=== PATIENT | female | born 1975 | race Caucasian/White ===

== ENCOUNTER 2018-07-11 12:48 | Emergency (ER) | payer OTHER ==
[2018-07-11 12:59] VITALS: BP 147/96; PULSE 81; RESP 18; TEMP 97
--- NOTE | 2018-07-11 13:38 | ED ---
General Adult HPI - General Chief complaint: Recheck/Abnormal Lab/Rx Stated complaint: MED REFILLS Source: patient, RN notes reviewed, old records reviewed Mode of arrival: ambulatory Limitations: no limitations - History of Present Illness Initial comments: 42-year-old female patient presents to ED for medication refill. Patient states that she recently moved back here from [place], states her previous provider from [place] did not order refills on jenaro medications of Gabapentin and Welbutrin XL. Patient is scheduled to see Dr. Merrill on 07/25. Patient states that she has been out of her medication for approximately 5 days. Patient takes gabapentin for hx of sciatica and welbutrin for depression. Patient denies any other complaints. Patient denies chest pain, shortness of breath, difficult to breathing, headache, changes in vision, cough/congestion's , abdominal pain, fever/chills, nausea vomiting diarrhea, dysurua, MSK injury/ complaint. Systemic: Pt denies fatigue, myalgia, fever/chills, rash. Pt denies weakness, night sweats, weight loss. Neuro: Pt denies headache, visual disturbances, syncope or pre-syncope. HEENT: Pt denies ocular discharge or irritation, otalgia, rhinorrhea, pharyngitis or notable lymphadenopathy. Cardiopulmonary: Pt denies chest pain, SOB, heart palpitations, dyspnea on exertion. Abdominal/GI: Pt denies abdominal pain, n/v/d. : Pt denies dysuria, burning w/ urination, frequency/urgency. Denies new onset urinary or bowel incontinence. MSK: Pt denies myalgia, loss of strength or function in extremities. - Related Data Home Medications Medication Instructions Recorded Confirmed Ibuprofen [Motrin] 800 mg PO Q8HR PRN 05/22/16 08/04/16 Atomoxetine HCl [Strattera] 100 mg PO DAILY 07/11/18 07/11/18 Gabapentin [Neurontin] 1,200 mg PO TID 07/11/18 07/11/18 hydrOXYzine PAMOATE [Vistaril] 100 mg PO TID 07/11/18 07/11/18 Previous Rx's Medication Instructions Recorded Gabapentin 800 mg PO TID 14 Days #42 tab 07/11/18 buPROPion XL [Wellbutrin Xl] 300 mg PO DAILY #14 tab.er.24h 07/11/18 Allergies Allergy/AdvReac Type Severity Reaction Status Date / Time No Known Allergies Allergy Verified 07/11/18 12:55 Review of Systems ROS Statement: Those systems with pertinent positive or pertinent negative responses have been documented in the HPI. ROS Other: All systems not noted in ROS Statement are negative. Past Medical History Past Medical History: GERD/Reflux, Seizure Disorder Additional Past Medical History / Comment(s): migraine, sciatica, abdominal abscess 2008 History of Any Multi-Drug Resistant Organisms: C-DIFF Date of last positivie culture/infection: 2013 Past Surgical History: Section, Cholecystectomy, Tubal Ligation Additional Past Surgical History / Comment(s): abdominal abscess, neck growth removed Past Psychological History: Anxiety Smoking Status: Current every day smoker Past Alcohol Use History: None Reported, Occasional Past Drug Use History: None Reported General Exam - General Exam Comments Initial Comments: Constitutional: NAD, AOX3, Pt has pleasant affect. HEENT: NC/AT, trachea midline, neck supple, no lymphadenopathy. Posterior pharynx non erythematous, without exudates. External ears appear normal, without discharge. Mucous membranes moist. Eyes PERRLA, EOM intact. There is no scleral icterus. No pallor noted. Cardiopulmonary: RRR, no murmurs, rubs or gallops, no JVD noted. Lungs CTAB in anterior and posterior villa. No peripheral edema. Abdominal exam: Abdomen soft and non-distended. Abdomen non-tender to palpation in all 4 quadrants. Bowel sounds active in LLQ. No hepatosplenomegaly. Neuro: CN II-XII grossly intact. Limitations: no limitations Course Vital Signs 07/11/18 12:55 Temperature 97 F L Pulse Rate 81 Respiratory 18 Rate Blood Pressure 147/96 O2 Sat by Pulse 100 Oximetry Medical Decision Making - Medical Decision Making 42-year-old female patient presents to ED for medication refill. Patient has appointment to see new primary care provider on 07/25. Medications patient is out of her gabapentin and Wellbutrin. Patient takes gabapentin for sciatica, Wellbutrin for depression. Patient states that she will call her new PCP, and attempt to have medications refilled's sooner than 07/25. Patient had no other complaints. Physical exam was benign. Medications will be refilled for 14 days. Patient to follow up with PCP as soon as possible. Patient new PCP will be put on referral. Pt to f/u with PCP in 1-2 days or [facility]. Case discussed with Dr. Leon Disposition Clinical Impression: Medication refill Disposition: HOME SELF-CARE Condition: Good Prescriptions: buPROPion XL [Wellbutrin Xl] 300 mg PO DAILY #14 tab.er.24h Gabapentin 800 mg PO TID 14 Days #42 tab Is patient prescribed a controlled substance at d/c from ED?: No Referrals: Graham Merrill MD [Primary Care Provider] - 1-2 days
--- NOTE | 2018-07-11 13:46 | ED ---
Disposition Clinical Impression: Medication refill Disposition: HOME SELF-CARE Condition: Good Instructions: Depression (ED), Sciatica (ED) Additional Instructions: Patient to adhere to previously discussed treatment plan and will take medication(s) as directed. Patient to follow up with PCP in 1-2 days. Patient to return to ED if new symptoms develop. Prescriptions: buPROPion XL [Wellbutrin Xl] 300 mg PO DAILY #14 tab.er.24h Gabapentin 800 mg PO TID 14 Days #42 tab Is patient prescribed a controlled substance at d/c from ED?: No Referrals: Graham Merrill MD [Primary Care Provider] - 1-2 days
== END 2018-07-11 13:48 | disposition home or self-care (01) ==
LOC: EC 12:48
DX: Z76.0 Encounter for issue of repeat prescription (principal); G40.909 Epilepsy, unspecified, not intractable, without status epilepticus; F41.9 Anxiety disorder, unspecified; F17.200 Nicotine dependence, unspecified, uncomplicated; Z79.899 Other long term (current) drug therapy; Z86.69 Personal history of other diseases of the nervous system and sense organs
CPT/HCPCS: 99282

== ENCOUNTER 2018-07-28 09:06 | Emergency (ER) | payer OTHER ==
[2018-07-28 09:14] VITALS: BP 139/94; PULSE 89; RESP 18; TEMP 97.8
[2018-07-28] MEDS ORDERED: ACET/COD 300 MG/30 MG STARTER PACK 6 TAB BTL PO STA (09:56)
--- NOTE | 2018-07-28 09:58 | ED ---
General Adult HPI - General Chief complaint: Dental/Oral Stated complaint: Rt jaw pain Time Seen by Provider: 07/28/18 09:19 Source: patient, RN notes reviewed Mode of arrival: ambulatory Limitations: no limitations - History of Present Illness Initial comments: Patient 43-year-old female presented to the emergency room today with chief complaint of increased dental pain. Patient does admit that symptoms started 2 days ago. She states that she feels some pain to the upper and lower jawline. She states that her face is swollen on the side. Patient admits that she had a dental abscess recently a month ago and was on penicillin. She states that she had some leftover pressure left at her sister's house. Patient states that she' s had increased pain" time sleeping was ibuprofen. Patient also admits that she left her Neurontin and her sister's house and was wondering if we can give her a few day supply. Patient denies any complaints or symptoms. Patient denies any recent fever, chills, shortness of breath, chest pain, back pain, abdominal pain, numbness or tingling, dysuria, hematuria, headache, visual change. - Related Data Home Medications Medication Instructions Recorded Confirmed Ibuprofen [Motrin] 800 mg PO Q8HR PRN 05/22/16 07/28/18 Atomoxetine HCl [Strattera] 100 mg PO DAILY 07/11/18 07/28/18 Gabapentin [Neurontin] 600 mg PO TID 07/11/18 07/28/18 hydrOXYzine PAMOATE [Vistaril] 100 mg PO TID 07/11/18 07/28/18 OXcarbazepine [Trileptal] 600 mg PO DAILY 07/28/18 07/28/18 Omeprazole 20 mg PO DAILY 07/28/18 07/28/18 Previous Rx's Medication Instructions Recorded buPROPion XL [Wellbutrin Xl] 300 mg PO DAILY #14 tab.er.24h 07/11/18 Amoxicillin 500 mg PO Q8H 10 Days day 07/28/18 Allergies Allergy/AdvReac Type Severity Reaction Status Date / Time No Known Allergies Allergy Verified 07/28/18 09:41 Review of Systems ROS Statement: Those systems with pertinent positive or pertinent negative responses have been documented in the HPI. ROS Other: All systems not noted in ROS Statement are negative. Past Medical History Past Medical History: GERD/Reflux, Seizure Disorder Additional Past Medical History / Comment(s): migraine, sciatica, abdominal abscess 2009 History of Any Multi-Drug Resistant Organisms: C-DIFF Date of last positivie culture/infection: 2013 Past Surgical History: Section, Cholecystectomy, Tubal Ligation Additional Past Surgical History / Comment(s): abdominal abscess, neck growth removed Past Psychological History: Anxiety Smoking Status: Current every day smoker Past Alcohol Use History: None Reported, Occasional Past Drug Use History: None Reported General Exam Limitations: no limitations General appearance: alert, in no apparent distress Head exam: Present: atraumatic, normocephalic, normal inspection Eye exam: Present: normal appearance, PERRL, EOMI. Absent: scleral icterus, conjunctival injection, periorbital swelling ENT exam: Present: normal exam, normal oropharynx, other (Tender in the gumline of tooth #29. Mild tenderness in the upper as well over tooth #4 and 5. No visualized abscess. Uvula midline. Patient swallows without any difficulty.) Neck exam: Present: normal inspection. Absent: tenderness, meningismus, lymphadenopathy Respiratory exam: Present: normal lung sounds bilaterally Cardiovascular Exam: Present: regular rate, normal rhythm, normal heart sounds. Absent: systolic murmur, diastolic murmur, rubs, gallop, clicks Neurological exam: Present: alert, oriented X3, CN II-XII intact Psychiatric exam: Present: normal affect, normal mood Skin exam: Present: warm, dry, intact, normal color. Absent: rash Course Vital Signs 07/28/18 09:13 Temperature 97.8 F Pulse Rate 89 Respiratory 18 Rate Blood Pressure 139/94 O2 Sat by Pulse 99 Oximetry Medical Decision Making - Medical Decision Making Advised patient that we could not fill her Neurontin that she would have follow- up family physician. Will be started on amoxicillin to cover for infection with dental abscess. Advise follow-up dentist over the next 2 days. Disposition Clinical Impression: Dental abscess Disposition: HOME SELF-CARE Condition: Good Instructions: Dental Abscess (ED) Additional Instructions: Please follow-up dentist as discussed. Please use medication as prescribed and return to the emergency room for any other concerns. Prescriptions: Amoxicillin 500 mg PO Q8H 10 Days day Is patient prescribed a controlled substance at d/c from ED?: No Referrals: Graham Merrill MD [Primary Care Provider] - 1-2 days Time of Disposition: 09:57
== END 2018-07-28 10:10 | disposition home or self-care (01) ==
LOC: EC 09:06
DX: K04.7 Periapical abscess without sinus (principal); K21.9 Gastro-esophageal reflux disease without esophagitis; F41.9 Anxiety disorder, unspecified; G40.909 Epilepsy, unspecified, not intractable, without status epilepticus; F17.200 Nicotine dependence, unspecified, uncomplicated; Z79.899 Other long term (current) drug therapy
CPT/HCPCS: 99283